=== PATIENT | female | born 1995 | race Caucasian/White ===

== ENCOUNTER 2016-12-25 10:32 | Emergency (ER) | payer OTHER ==
[2016-12-25 11:40] VITALS: BP 121/69
--- NOTE | 2016-12-25 12:06 | UC ---
Throat Pain/Nasal Antonio HPI - HPI Summary HPI Summary: Marked nasal congestion with PND and some cough starting 7-8 days ago. Had R maxillary facial fx years ago, sometimes gets bacterial complications of colds from this. Not having facial pain or focal symptoms. Denies fever or trouble breathing, is having mild R ear pain. - History of Current Complaint Chief Complaint: UC Stated Complaint: HEAD CONGESTION COUGH Time Seen by Provider: 12/25/16 11:39 Hx Obtained From: Patient Hx Last Menstrual Period: December 13; on control ?: No Onset/Duration: Gradual Onset, Lasting Days Severity: Moderate Cough: Productive Associated Signs & Symptoms: Positive: Sinus Discomfort, Nasal Discharge - Allergies/Home Medications Allergies/Adverse Reactions: Allergies Allergy/AdvReac Type Severity Reaction Status Date / Time Amoxicillin Allergy Mild Hives Verified 03/30/16 15:39 PMH/Surg Hx/FS Hx/Imm Hx Endocrine History Of: Denies: Diabetes, Thyroid Disease, Hyperthyroidism, Hypothyroidism Cardiovascular History Of: Denies: Cardiac Disorders, Hypertension, Pacemaker/ICD, Congestive Heart Failure Respiratory History Of: Denies: COPD, Asthma GI/ History Of: Denies: Ulcer, Renal Disease Neurological History Of: Denies: TIA, Seizures Psychological History Of: Denies: Anxiety, Depression - Surgical History Surgical History: Yes Surgery Procedure, Year, and Place: Pylonydal Cyst incision/extraction March 2009 - Family History Known Family History: Positive: Blood Disorder - BLOOD CLOTS - UNCLE - Social History Occupation: Employed Full-time Lives: With Family Alcohol Use: None Substance Use Type: None Smoking Status (MU): Former Smoker Amount Used/How Often: quit 2 years ago (2011) Have You Smoked in the Last Year: No Household Exposure Type: Cigarettes - Immunization History Most Recent Influenza Vaccination: fall 2014 Most Recent Tetanus Shot: 2016 Most Recent Pneumonia Vaccination: unknown Review of Systems Constitutional: Negative Skin: Negative Eyes: Negative ENT: Ear Ache, Nasal Discharge Respiratory: Cough Cardiovascular: Negative Gastrointestinal: Negative Genitourinary: Negative Motor: Negative Neurovascular: Negative Musculoskeletal: Negative Neurological: Negative Psychological: Negative All Other Systems Reviewed And Are Negative: Yes Physical Exam Triage Information Reviewed: Yes Appearance: Well-Appearing, No Pain Distress, Well-Nourished Vital Signs: Initial Vital Signs Temp 97.8 F 12/25/16 11:35 Pulse 98 12/25/16 11:35 Resp 18 12/25/16 11:35 BP 121/69 12/25/16 11:35 Pulse Ox 99 12/25/16 11:35 Vital Signs Reviewed: Yes Eye Exam: Normal Eyes: Positive: Conjunctiva Clear ENT: Positive: Pharynx normal, Nasal congestion, Nasal drainage, TMs normal. Negative: Tonsillar swelling, Tonsillar exudate Dental Exam: Normal Neck exam: Normal Neck: Positive: Supple, Nontender, No Lymphadenopathy Respiratory Exam: Normal Respiratory: Positive: Chest non-tender, Lungs clear, Normal breath sounds, No respiratory distress, No accessory muscle use Cardiovascular Exam: Normal Cardiovascular: Positive: RRR, No Murmur Musculoskeletal Exam: Normal Neurological Exam: Normal Psychological Exam: Normal Skin Exam: Normal Throat Pain/Nasal Course/Dx - Differential Dx/Diagnosis Provider Diagnoses: URI, likely viral Discharge - Discharge Plan Condition: Stable Disposition: HOME Patient Education Materials: Upper Respiratory Infection (ED) Forms: *Work Release Additional Instructions: Call or return if you develop increasing fever, shortness of breath, chest pain , bloody sputum, or otherwise worsen. If you have not improved at all after several days, contact your primary care physician or return here. SINUS RINSES HAVE BEEN SHOWN TO HELP IMPROVE SYMPTOMS AND SHORTEN THE DURATION OF MILD TO MODERATE SINUSITIS. [employer] MAKES A SQUEEZE BOTTLE THAT YOU CAN USE OVER THE SINK OR IN THE SHOWER. USE ONLY SALINE, AND REPEAT UP TO EVERY 2 HOURS DESIRED. ONLY USE DISTILLED WATER TO MIX UP SALINE, DO NOT USE TAP WATER. NASAL SPRAYS AND DROPS: Decongestant nasal sprays and drops often give dramatic relief from congestion. They are often recommended for patients with sinus infection to assist with sinus drainage. Persons with high blood pressure should consult the doctor before using these nasal sprays. Afrin and Ted-Synephrine are common [id number] preparations. They should not be used for more than three days, as "rebound" congestion can occur - - the congestion flares as the drug wears off. A way of dealing with this rebound congestion problem is to medicate only one nostril each time, allowing the other nostril to recover from the medicine' s effects. When you no longer need the drug during the day, spray only one nostril each night. This helps you sleep well without severe rebound congestion. Call your doctor if you develop severe headache, palpitations, or chest pain. IF YOU DO NOT SEE SOME STEADY IMPROVEMENT IN THE NEXT 3-4 DAYS, PLEASE CALL AND GET ME A MESSAGE. I WILL BE WORKING BOTH AT [facility] AND [facility] MOST DAYS FOR THE NEXT WEEK OR SO.
== END 2016-12-25 12:21 | disposition home or self-care (01) ==
LOC: UCEAST 10:32
DX: J06.9 Acute upper respiratory infection, unspecified (principal); Z87.891 Personal history of nicotine dependence; Z88.0 Allergy status to penicillin
CPT/HCPCS: 99211; G0463

== ENCOUNTER 2017-02-05 12:51 | Emergency (ER) | payer OTHER ==
[2017-02-05 15:32] VITALS: BP 135/76
--- NOTE | 2017-02-05 15:55 | UC ---
Throat Pain/Nasal Antonio HPI - HPI Summary HPI Summary: complaint of sore throat that started last night hurts to swallow denies fever denies nasal congestion and cough gargled with listerene without relief took some tylenol without relief - History of Current Complaint Chief Complaint: UCGeneralIllness Stated Complaint: SORE THROAT Time Seen by Provider: 02/05/17 15:36 Hx Obtained From: Patient Hx Last Menstrual Period: 02/05/17 - Allergies/Home Medications Allergies/Adverse Reactions: Allergies Allergy/AdvReac Type Severity Reaction Status Date / Time Amoxicillin Allergy Mild Hives Verified 03/30/16 15:39 PMH/Surg Hx/FS Hx/Imm Hx Previously Healthy: Yes Endocrine History Of: Denies: Diabetes, Thyroid Disease, Hyperthyroidism, Hypothyroidism Cardiovascular History Of: Denies: Cardiac Disorders, Hypertension, Pacemaker/ICD, Congestive Heart Failure Respiratory History Of: Denies: COPD, Asthma GI/ History Of: Denies: Ulcer, Renal Disease Neurological History Of: Denies: TIA, Seizures Psychological History Of: Denies: Anxiety, Depression - Surgical History Surgical History: Yes Surgery Procedure, Year, and Place: Pylonydal Cyst incision/extraction March 2009 - Family History Known Family History: Positive: Blood Disorder - BLOOD CLOTS - UNCLE Negative: Cardiac Disease, Hypertension - Social History Occupation: Employed Full-time Lives: With Family Alcohol Use: None Substance Use Type: None Smoking Status (MU): Former Smoker Amount Used/How Often: quit 2 years ago (2011) Have You Smoked in the Last Year: No Household Exposure Type: Cigarettes - Immunization History Most Recent Influenza Vaccination: fall 2014 Most Recent Tetanus Shot: 2016 Most Recent Pneumonia Vaccination: unknown Review of Systems Constitutional: Negative Skin: Negative Eyes: Negative ENT: Sore Throat Respiratory: Negative Cardiovascular: Negative Gastrointestinal: Negative Genitourinary: Negative Motor: Negative Neurovascular: Negative Musculoskeletal: Negative Neurological: Negative Psychological: Negative All Other Systems Reviewed And Are Negative: Yes Physical Exam Triage Information Reviewed: Yes Appearance: No Pain Distress, Well-Nourished Vital Signs: Initial Vital Signs Temp 97.9 F 02/05/17 13:44 Pulse 89 02/05/17 13:44 Resp 16 02/05/17 13:44 BP 141/66 02/05/17 13:44 Pulse Ox 100 02/05/17 13:44 Vital Signs Reviewed: Yes Eyes: Positive: Conjunctiva Clear ENT: Positive: Pharyngeal erythema, TMs normal, Tonsillar swelling, Tonsillar exudate. Negative: Nasal congestion Neck: Positive: Enlarged Nodes @ - cervical lymph nodes Respiratory: Positive: Lungs clear, Normal breath sounds, No respiratory distress, No accessory muscle use Cardiovascular: Positive: RRR, No Murmur, Pulses Normal Abdomen Description: Positive: Nontender, Soft Bowel Sounds: Positive: Present Musculoskeletal: Positive: No Edema Neurological: Positive: Alert Psychological Exam: Normal Skin Exam: Normal Throat Pain/Nasal Course/Dx - Differential Dx/Diagnosis Differential Diagnosis/HQI/PQRI: Pharyngitis, Tonsillitis Provider Diagnoses: pharyngitis Discharge - Discharge Plan Condition: Stable Disposition: HOME Patient Education Materials: Pharyngitis (ED) Referrals: Gerald Mcclure NP [Primary Care Provider] - Additional Instructions: Your blood pressure is elevated. Please contact your primary care provider within 1 day -4 weeks for further evaluation. PHARYNGITIS (Sore Throat) What is Pharyngitis? The medical name for a sore throat is Pharyngitis. It is caused by an infection or irritation of your throat or tonsils. The infection can be caused by a virus or by bacteria. Not everyone with Pharyngitis needs antibiotics. Antibiotics will not make viral infections better, and they will not help a sore throat caused by irritation. Symptoms May Include: Sore throat Swelling of the glands in the neck Trouble or pain with swallowing Fever Headache Cough Extreme tiredness Ear pain Treatment Recommendations: Gargle every few hours with a solution of 1/4 teaspoon of salt dissolved in 1/ 2 cup of warm water. Drink plenty of warm beverages, like tea with lemon, (with or without honey) and soup. You may eat and drink cold foods and liquids like frozen yogurt, popsicles, and ice water if that makes your throat feel better. The goal is to keep you well hydrated. Use a "cool-mist" vaporizer or humidifier in the room where you spend most of your time. If you get a sore throat often, consider adding an electronic air filter and humidifier to your furnace system. Don't smoke. Do not eat spicy foods. Take medicine exactly as prescribed. If you do not think it is helping, call your healthcare provider. Do not increase how much or how often you take it without getting their OK first. Non-prescription anti-inflammatory medicine like ibuprofen (Motrin, Advil) or naproxen (Aleve) may help lessen the pain. You should not take these medicines if you have had bleeding in your stomach in the past. Acetaminophen ( Tylenol) is another choice of medicine that may help the pain. If pain medicine that makes you tired or sleepy or contains narcotics is prescribed, you should not drink, drive, or participate in any other activities that you need to be clear-headed for. Please keep all medicines out of the reach of children. Do not get in close contact with anyone you know who has a sore throat. Use throat lozenges (Cepostat, [place], etc.) or suck on hard candy for temporary relief of the pain with swallowing. (Do not give to children under age 5.) Call Your Doctor or Return Here IF: Your symptoms do not start to get better within 2 days or you become worse. You have a fever over 101.0 F orally. You cant swallow liquids or saliva. You are drooling. You start to have trouble breathing. You start to have a rash.
== END 2017-02-05 16:01 | disposition home or self-care (01) ==
LOC: UCEAST 12:51
DX: J02.9 Acute pharyngitis, unspecified (principal); Z88.1 Allergy status to other antibiotic agents; Z87.891 Personal history of nicotine dependence
CPT/HCPCS: 87651; 99212; G0463

== ENCOUNTER 2018-05-15 12:00 | Emergency (ER) | payer OTHER ==
[2018-05-15 12:12] VITALS: BP 115/80
--- NOTE | 2018-05-15 12:15 | UC ---
General HPI - HPI Summary HPI Summary: Mirna Reyes, scribed for attending Rosy Villalobos MD. Pt is a 22 y/o F who presents to [facility] accompanied by her aunt c/o N/V/D. Diarrhea began on (1 week ago) which resolved, then she began vomiting on Saturday (5 days ago) with diarrhea starting again today. Reports that her N/ V is slightly improved today. Has been trying to drink watered-down Gatorade which she tolerates for about an hour, then she vomits. Notes subjective fever/ chills on Saturday (6 days ago) which is now resolved. Additionally notes sore throat secondary to vomiting and RUQ pain. Denies rash, GARDUNO, and ear pain. She was seen by [facility] on Saturday (4 days ago) where she was given a Dx of UTI and Rx for Keflex QID. PSHx cholecystectomy (2015) - has been experiencing yellow diarrhea since surgery and also has had difficulty tolerating Abx. Has not traveled outside of the country and nobody at home is sick. No chance of - is on oral contraceptives and has only missed doses while sick during which she has not been sexually active. Has an appointment with Dr. Nayak in a week. Patient medications and allergies reviewed this visit. - History of Current Complaint Chief Complaint: UCGeneralIllness Stated Complaint: VOMITING Hx Obtained From: Patient Hx Last Menstrual Period: 04/30/18 Onset/Duration: Lasting Weeks - 1 week, Still Present Timing: Intermittent Episodes Lasting: Current Severity: Mild Pain Intensity: 3 Pain Location at: RUQ Character: Cramping/aching Aggravating: Nothing Alleviating: Nothing Associated Signs & Symptoms: Positive: Abdominal Pain - RUQ - mild, Diarrhea, Fever - Resolved, Nausea, Vomiting - Allergy/Home Medications Allergies/Adverse Reactions: Allergies Allergy/AdvReac Type Severity Reaction Status Date / Time amoxicillin Allergy Rash Verified 05/15/18 12:12 PMH/Surg Hx/FS Hx/Imm Hx - Additional Past Medical History Additional PMH: NEGATIVE PMHx: COPD, HTN, Asthma, DM Previously Healthy: Yes - Surgical History Surgical History: Yes Surgery Procedure, Year, and Place: Pylonydal Cyst incision/extraction March 2009 nish - Family History Known Family History: Positive: Blood Disorder - BLOOD CLOTS - UNCLE, Other - GI (father) Negative: Cardiac Disease, Hypertension - Social History 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 [employer] Alcohol Use: None Substance Use Type: None Smoking Status (MU): Former Smoker Amount Used/How Often: quit 2 years ago (2011) Have You Smoked in the Last Year: No Household Exposure Type: Cigarettes - Immunization History Most Recent Influenza Vaccination: fall 2014 Most Recent Tetanus Shot: 2016 Most Recent Pneumonia Vaccination: unknown Review of Systems Constitutional: Fever - Resolved, Chills - Resolved Skin: Negative Eyes: Negative ENT: Sore Throat - Secondary to vomiting Respiratory: Negative Cardiovascular: Negative Gastrointestinal: Abdominal Pain - RUQ, Vomiting, Diarrhea, Nausea Genitourinary: Negative Motor: Negative Neurovascular: Negative Musculoskeletal: Negative Neurological: Negative Psychological: Negative All Other Systems Reviewed And Are Negative: Yes - Comments Additional Review of Systems Comments: NEGATIVE: Rash, GARDUNO, and ear pain Physical Exam - Summary Physical Exam Summary: Vital Signs Reviewed: Yes A+Ox3, no distress Eyes: Conjunctiva Clear, NOAH. EOM intact and full ENT: Hearing grossly normal TM x 2 clear, mmoist, uvula midline, no exudate, no erythema Neck: Positive: Supple Respiratory: Positive: No respiratory distress, No accessory muscle use + CTA throughout no w/r Cardiovascular: RRR nl s1, s2 no m/r CBT <2 sec abd soft + BS nt/nd no guarding, no distension no cva Musculoskeletal Exam: RODRÍGUEZ x 4 without difficulty Strength Intact, ROM Intact Neurological: Positive: Alert, + sensation throughout Psychological: Positive: Normal Response To Family Skin: Positive: no rash, no ecchymosis Triage Information Reviewed: Yes Vital Signs: Initial Vital Signs Temp 98 F 05/15/18 12:06 Pulse 112 05/15/18 12:06 Resp 17 05/15/18 12:06 BP 115/80 05/15/18 12:06 Pulse Ox 100 05/15/18 12:06 Re-Evaluation - Re-Evaluation First Eval Re-Evaluation Time: 13:09 Comment: Pt has a half a popsicle and has not vomited. Review with patient and her aunt clears to [place]. Lo every 6. If pain should develops pain, fevers , uncontrolled vomiting recommend emergent department for further evaluation which included fluids and labs. Patient comfortable in agreement with plan. Work note written for yesterday today and tomorrow. Patient has appointment with a new PCP on . Patient also has 2 collection kit for home. Course/Dx - Course Course Of Treatment: Patient medications and allergies reviewed this visit. Patient presents to urgent care reporting that she had nausea vomiting and diarrhea since last week. Patient was seen at [facility] on Saturday. Patient was given fluids and given Keflex for UTI. Patient states her symptoms had improved until yesterday when they return. Patient can with diarrhea today. Patient denies any pain. No fevers or chills. Patient denies current lightheadedness although had that before she got fluids on Saturday. Patient's vitals are stable not concerning exam. Patient appears well-hydrated. We'll give patient one Zofran ODT. Patient able to give a stool collected otherwise was sent home with stool collection. After Zofran we'll try Popsicle trial - Differential Dx - Multi-Symptom Provider Diagnoses: n/v/d Discharge - Sign-Out/Discharge Documenting (check all that apply): Patient Departure - Discharge - Discharge Plan Condition: Stable Disposition: HOME Prescriptions: Ondansetron [Zofran Odt] 4 mg PO Q6HR PRN #10 tab.rapdis PRN Reason: Vomiting Patient Education Materials: Acute Nausea and Vomiting (ED), Acute Diarrhea (ED ) Forms: *Gen. Provider Communication, *Work Release Referrals: Viviana Nayak MD [Primary Care Provider] - Additional Instructions: - Stay well hydrated - frequent sips of fluids are important - water, juice, gatorade, pedialyte, popsicle - Avoid excess caffeine and all alcohol until you are feeling better - okay to take medication as prescribed for nausea. - For the first 6 hours, eat and drink clears (water, hollie vic, soup broth, jello, popsicles, Gatorade). If you tolerate this okay, add bland foods such as dry toast, scrambled eggs, crackers. Wait until you are feeling better for 24 hours before eating spicy food, acidic food, tomato based food, fried food. - You have been given a stool collection kit - if you collect diarrhea, bring a sample to a [facility] lab for testing. - it is recommended you discontinue your antibiotics - Contact your doctor to arrange a follow-up appointment later this week. Contact your doctor or return with questions or concern - Billing Disposition and Condition Condition: STABLE Disposition: Home
[2018-05-15] MEDS ORDERED: Ondansetron ODT TAB* 4 MG PO ONE (12:36)
[2018-05-15] MEDS ORDERED: Ondansetron ODT TAB* 4 MG ONE (12:39)
--- NOTE | 2018-05-16 21:12 | UC ---
- Progress Note Progress Note: Please notify PT of + test for c.diff Needs to see her MD in followup ...first available IF SHE IS WORSE THEN WHEN SEEN HERE I SUGGEST SHE GO TO THE ER will e RX flagyl 500mg 3x day for 10 days may need to be changed to something else if symptoms become severe Re-Evaluation - Re-Evaluation First Eval Re-Evaluation Time: 13:09 Comment: Pt has a half a popsicle and has not vomited. Review with patient and her aunt clears to [place]. Zofran every 6. If pain should develops pain, fevers , uncontrolled vomiting recommend emergent department for further evaluation which included fluids and labs. Patient comfortable in agreement with plan. Work note written for yesterday today and tomorrow. Patient has appointment with a new PCP on . Patient also has 2 collection kit for home. Discharge - Sign-Out/Discharge Documenting (check all that apply): Post-Discharge Follow Up - Discharge Plan Condition: Stable Disposition: HOME Prescriptions: Ondansetron [Zofran Odt] 4 mg PO Q6HR PRN #10 tab.rapdis PRN Reason: Vomiting Patient Education Materials: Acute Nausea and Vomiting (ED), Acute Diarrhea (ED ) Forms: *Gen. Provider Communication, *Work Release Referrals: Viviana Ayon MD [Primary Care Provider] - Additional Instructions: - Stay well hydrated - frequent sips of fluids are important - water, juice, gatorade, pedialyte, popsicle - Avoid excess caffeine and all alcohol until you are feeling better - okay to take medication as prescribed for nausea. - For the first 6 hours, eat and drink clears (water, hollie vic, soup broth, jello, popsicles, Gatorade). If you tolerate this okay, add bland foods such as dry toast, scrambled eggs, crackers. Wait until you are feeling better for 24 hours before eating spicy food, acidic food, tomato based food, fried food. - You have been given a stool collection kit - if you collect diarrhea, bring a sample to a [facility] lab for testing. - it is recommended you discontinue your antibiotics - Contact your doctor to arrange a follow-up appointment later this week. Contact your doctor or return with questions or concern - Billing Disposition and Condition Condition: STABLE Disposition: Home
== END 2018-05-15 13:19 | disposition home or self-care (01) ==
LOC: UCEAST 12:00
DX: R11.2 Nausea with vomiting, unspecified (principal); R19.7 Diarrhea, unspecified; Z88.0 Allergy status to penicillin; Z87.891 Personal history of nicotine dependence
CPT/HCPCS: 81003; 99212; A9270-GY; G0463

== ENCOUNTER 2018-08-01 18:42 | Emergency (ER) | payer OTHER ==
[2018-08-01 19:11] VITALS: BP 129/82
--- NOTE | 2018-08-01 20:00 | UC ---
Skin Complaint HPI - HPI Summary HPI Summary: 23 y/o male presents to the urgent care c/o her pilonidal cyst scar is now draining some serous discharge since yesterday. Pt reports she had surgery for a pilonidal cyst in 2008. It never bother her until now. She has mild irritation around which it feels a burning sensation when she sits. She thinks her scar opened a little bit. Pain w/ sitting is 5/10. Pt has not taken anything to alleviate symptoms. LMP:07/23/2018 w/ regular menstrual cycles, on OCP. Pt denies Hx of MRSA, fever, SOB, chest pain, abdominal pain, N/V/D. - History of Current Complaint Chief Complaint: UCSkin Time Seen by Provider: 08/01/18 19:53 Stated Complaint: WOUND RECHECK Hx Obtained From: Patient Hx Last Menstrual Period: [id number] Onset/Duration: Gradual Onset, Lasting Days - 1 day, Still Present, Worse Since - today Skin Exposure Onset/Duration: Days Ago - 1 day Timing: Constant Onset Severity: Mild Current Severity: Moderate Pain Intensity: 5 Pain Scale Used: 0-10 Numeric Location: Discrete - mid line of her buttocks in the scar Character: Redness, Painful Aggravating Factor(s): Touch Alleviating Factor(s): Nothing Associated Signs & Symptoms: Positive: Rash, Drainage - serous drainage, Tenderness. Negative: Fever, Chills Related History: Other: - Hx of Pilonidal cyst in 2008 - Allergy/Home Medications Allergies/Adverse Reactions: Allergies Allergy/AdvReac Type Severity Reaction Status Date / Time amoxicillin Allergy Rash Verified 08/01/18 19:11 anesthesia Allergy Vomiting Uncoded 08/01/18 19:11 Home Medications: Home Medications Norgestimate-Ethinyl Estradiol [Garden-Linyah 28 Tablet] 1 tab PO DAILY 08/01/18 [ History Confirmed 08/01/18] Review of Systems Constitutional: Negative Skin: Rash - serous drainage from old pilonidal cyst scar w/ sorrounding redness and pain Eyes: Negative ENT: Negative Respiratory: Negative Cardiovascular: Negative Gastrointestinal: Negative Genitourinary: Negative Motor: Negative Neurovascular: Negative Musculoskeletal: Negative Neurological: Negative Psychological: Negative Is Patient Immunocompromised?: No All Other Systems Reviewed And Are Negative: Yes PMH/Surg Hx/FS Hx/Imm Hx Previously Healthy: Yes - Pt denies PMHX - Surgical History Surgical History: Yes Surgery Procedure, Year, and Place: Pylonydal Cyst incision/extraction March 2009 , nish - Family History Known Family History: Positive: Blood Disorder - BLOOD CLOTS - UNCLE, Other - GI (father) Negative: Cardiac Disease, Hypertension - Social History Occupation: Employed Full-time Lives: With Family Alcohol Use: Rare Substance Use Type: None Smoking Status (MU): Light Every Day Tobacco Smoker Amount Used/How Often: quit 2 years ago (2011) Have You Smoked in the Last Year: No Household Exposure Type: Cigarettes - Immunization History Most Recent Influenza Vaccination: fall 2014 Most Recent Tetanus Shot: 2015 Most Recent Pneumonia Vaccination: unknown Physical Exam - Summary Physical Exam Summary: Vital Signs Reviewed: Yes General: well developed, well nourished female sitting in the examining table w/ o any apparent distress Eye Exam: Normal Eyes: Positive: Conjunctiva Clear - PERRLA, EOMI, fundi grossly normal ENT: Positive: Normal ENT inspection, Hearing grossly normal, Pharynx normal, TMs normal Neck: Positive: Supple, Nontender, No Lymphadenopathy Respiratory: Positive: Chest non-tender, Lungs clear, Normal breath sounds, No respiratory distress Cardiovascular: Positive: RRR, No Murmur, Pulses Normal, Brisk Capillary Refill Abdomen Description: Positive: Nontender, No Organomegaly, Soft. Negative: CVA Tenderness (R), CVA Tenderness (L) Bowel Sounds: Positive: Present Musculoskeletal: Positive: Strength Intact, ROM Intact, No Edema Neurological: Positive: Alert, Muscle Tone Normal Psychological Exam: Normal Skin: Positive: Positive scar at the midline over the coccyx s/p pilonidal surgery w/ a discrete opening about 0.5cm in size w/ mild serous discharge, also mild erythematous maculopapular eruption sorrounding the area and between both gluteus. no fluctuant induration palpated , mild tenderness to palpation, Triage Information Reviewed: Yes Vital Signs: Initial Vital Signs Temp 98.4 F 08/01/18 19:05 Pulse 99 08/01/18 19:05 Resp 16 08/01/18 19:05 BP 129/82 08/01/18 19:05 Pulse Ox 100 08/01/18 19:05 Course/Dx - Course Course Of Treatment: 23 y/o male presents to the urgent care c/o her pilonidal cyst scar is now draining some serous discharge since yesterday. Pt reports she had surgery for a pilonidal cyst in 2008. It never bother her until now. She has mild irritation around which it feels a burning sensation when she sits. She thinks her scar opened a little bit. Pain w/ sitting is 5/10. Pt has not taken anything to alleviate symptoms. LMP:07/23/2018 w/ regular menstrual cycles, on OCP. Pt denies Hx of MRSA, fever, SOB, chest pain, abdominal pain, N/ V/D. Hx obtained. Pt w/ Positive scar at the midline over the coccyx s/p pilonidal surgery w/ a discrete opening about 0.5cm in size w/ mild serous discharge, also mild erythematous maculopapular eruption sorrounding the area and between both gluteus. no fluctuant induration palpated , mild tenderness to palpation on examination. Pt's symptoms disccused w/ Dr Villalobos and she recommeded Po antibiotics since Pilonidal cyst is already draining and f/u w/ Surgeon for further management. Wound cleaned w/ 3X iodine swabs and flushed w/ sterile water, Bacitracin oint applied and wound covered w/ sterile dressing. Pt Rx Bactrim PO and Bacitracin oint, Ibuprofen PO as directed below. First dose given at the clinic tonight. Pt tolerated well medications. Pt given referral w/ surgeon Dr Barakat for further management. D/C instructions explained. Pt undertstood and agreed w/ plan of care and left clinic ambulating , A&OX3. - Differential Diagnoses - Skin Complaint Differential Diagnoses: Abscess, Cellulitis, MRSA, Urticaria, Other - pilonidal cyst - Diagnoses Provider Diagnoses: 1- Pilonidal cyst - Physician Notification/Consults Discussed Patient Care With: Rosy Villalobos - Dr villalobos agreed w/ Pt's plan of care. Discharge - Sign-Out/Discharge Documenting (check all that apply): Patient Departure All imaging exams completed and their final reports reviewed: No Studies - Discharge Plan Condition: Stable Disposition: HOME Prescriptions: Bacitracin OINTMENT* 1 applic TOPICAL BID #1 tube Ibuprofen TAB* [Motrin TAB* 600 MG] 600 mg PO Q6H PRN #30 tab PRN Reason: Pain Sulfamethox/Trimethoprim DS* [Bactrim DS 800/160 TAB*] 1 tab PO BID #20 tab Patient Education Materials: Pilonidal Cyst (ED) Referrals: Ryne Barakat MD [Medical Doctor] - 3 Days Justin Hinojosa MD [Primary Care Provider] - 2 Days Additional Instructions: 1-Please take full course of antibiotic to avoid resistance. Keep wound clean and dry with a sterile dressing. Apply bacitracin topical as directed 2-. Take Ibuprofen PO q6-8hrs prn for pain or swelling. Apply warm compresses prn 4-If you develop fever or redness or pain increases despite taking antibiotic please go to the ER immediately for further management 5- Please f/u w/ Surgeon Dr Barakat for further evaluation and treatment on your Pilonidal scar - Billing Disposition and Condition Condition: STABLE Disposition: Home - Attestation Statements Provider Attestation: I was available for consult. This patient was seen by the OZZY. The patient was not presented to, seen by, or examined by me. -Praveena
== END 2018-08-01 20:40 | disposition home or self-care (01) ==
LOC: UCEAST 18:42
DX: L05.91 Pilonidal cyst without abscess (principal); Z88.0 Allergy status to penicillin; Z88.4 Allergy status to anesthetic agent; Z87.891 Personal history of nicotine dependence
CPT/HCPCS: 99212; G0463

== ENCOUNTER 2019-05-12 10:19 | Emergency (ER) | payer OTHER ==
--- OUTSIDE RECORDS SUMMARY | 2019-05-12 10:39 | XMS REPORT | Continuity of Care Document ---
:1995 External Reference #:[id number] Author Name KimberlyaMría bhardwaj Care Team Providers Name Role Phone Justin Hinojosa MD Primary Care Physician Unavailable Payers Date Identification Numbers Payment Provider Subscriber Policy Number: [id number] [facility] stas gomez PayID: [id number] [address] [address] [place] [address] Expires: 2019 Policy Number: [id number] [facility] Stas Gomez Group Number: [id number] Group Name: [place] [address] PayID: [id number] Onset: 2012 Policy Number: [id number] [employer] Tiera Gomez PayID: [id number] [address] [place] [address] Expires: 2016 PayID: [id number] [employer] Employee [address] [place] [address] Effective: 2016 Policy Number: Cont: [employer] Din[employer] Employee [id number] Employees PayID: [id number] [address] [place] [address] Expires: 2017 Policy Number: [id number] Angelito Gomez Group Name: [id number] [address] PayID: [id number] [place] [address] Problems Active Problems Provider Date Pharyngitis Gerald Mcclure NP Onset: 02/14/2017 Family History Date Family Member(s) Observation Comments Father Alcoholism Father Tobacco use disorder Father Cirrhosis Father Hypertension Mother Cervical Cancer First Son Only child Onset: (2016) First Brother 20 healthy Onset: (2016) Second Brother 19 ADHD Paternal Grandfather [place] : (age 50 Years) Paternal Grandfather due to [place] Paternal Grandfather CAD Paternal Grandmother due to CAD () Paternal Grandmother due to Diabetes () : (age 79 Years) Paternal Grandmother due to Stroke Maternal Grandfather Lung Cancer and bone Maternal Grandmother Healthy? 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 ETOH Use Negative For Denies alcohol use Tobacco Use Start: Unknown End: Patient is a former Unknown smoker Recreational Drug Use Denies Drug Use Smoking Status Reviewed: 04/23/19 Patient is a former smoker Exercise Type/Frequency Exercises regularly 3 days a week goes for long walks Currently Active Patient is currently sexually active Contraceptive Methods alma-linyah Age 1st [place] 14 Years Old # Partners in a Lifetime 3 STD's HPV, [facility] 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 M.D. Kerr-Linyah 1 by mouth Unknown 0.25-35mg-mcg Tablets every day Ibuprofen 1 tab by mouth Unknown 600mg Tablets three times a day as needed History Medications Lidocaine Viscous swish and gargle 100ml J03.90 Tamica Tobar, 02/06/2017 - 2% every 3- 4 hours N.P. 02/16/2017 Solution as needed Azithromycin two tabs day 6tabs J03.90 Tamica Tobar, 02/06/2017 - 250mg one, one daily N.P. 02/14/2017 Tablets till gone Reglan Other Ordering 11/27/2013 - 10mg Tablets Provider 06/19/2016 Prilosec 1 po bid Other Ordering 11/27/2013 - 40mg Capsules Provider 06/19/2016 DR Porras 1-2 by mouth Unknown - 5-325mg every 4 to 6 02/06/2017 Tablets hours as needed pain Bactrim DS 1 by mouth twice Unknown - 800-160mg a day 04/22/2019 Tablets Bacitracin (External) topical to Unknown - wounds twice a 04/22/2019 500Unit/GM Ointment day Medications Administered in Office Medication SIG Qnty Indications Ordering Provider Date BREE Hua, 11/10/2012 Injection N.P. Vital Signs Date Vital Result Comment 04/23/2019 1:27pm Height 62 inches 5'2" Weight 212.00 lb BP Systolic 134 mmHg BP Diastolic 90 mmHg Respiratory Rate 16 /min Body Temperature 98.7 F Pain Level 7 BMI (Body Mass Index) 38.8 kg/m2 08/05/2018 10:37am Height 64 inches 5'4" Weight 180.00 lb Heart Rate 80 /min BP Systolic 124 mmHg BP Diastolic 80 mmHg Respiratory Rate 16 /min Body Temperature 98.3 F BMI (Body Mass Index) 30.9 kg/m2 02/14/2017 1:06pm Weight 203.25 lb Heart Rate 82 /min BP Systolic Sitting 120 mmHg BP Diastolic Sitting 80 mmHg Body Temperature 98.9 F O2 % BldC Oximetry 98 % 02/06/2017 8:33am Weight 206.00 lb Heart Rate 85 /min BP Systolic Sitting 122 mmHg BP Diastolic Sitting 70 mmHg Body Temperature 98.0 F O2 % BldC Oximetry 98 % 2016 8:19am Height 64 inches 5'4" Weight 194.38 lb Heart Rate 80 /min BP Systolic 110 mmHg BP Diastolic 70 mmHg Body Temperature 98.0 F O2 % BldC Oximetry 99 % BMI (Body Mass Index) 33.4 kg/m2 11/27/2013 1:02pm Height 64 inches 5'4" Weight 176.00 lb Heart Rate 100 /min BP Systolic 114 mmHg BP Diastolic 76 mmHg Respiratory Rate 16 /min Body Temperature 98.9 F BMI (Body Mass Index) 30.2 kg/m2 Results Test Date Facility Test Result H/L Range Note Laboratory test 02/14/2017 [facility] Culture Throat SEE RESULT [address] [place] [address] [phone] Laboratory test 02/05/2017 [facility] Rapid Strep Negative N Negative [address] [place] [address] [phone] 1 SEE RESULT BELOW Name: TIERA GOMEZ : [address]: Gerald Mcclure CAUL PULLER Acct: [id number] Unit: [id number] AGE: 21 Location: [facility] Re02/14/17 SEX: F Status: REG REF SPEC: [id number] ILENE: 02/14/17-[address]: Gerald Mcclure NP REQ: [id number] RECD: 02/14/17 STATUS: COMP _ SOURCE: THROAT SPDESC: ORDERED: Throat Culture COMMENTS: [id number] Procedure Result Reported Site Throat Culture Final 02/16/17- 1350 ML Organism 1 NORMAL DIAMOND Quantity 2+ Throat cultures are clinically indicated to detect the presence of group A strep, arcanobacterium and yeast. In certain cases, predominating organisms will be reported. * ML - MAIN LAB ([facility]) . END OF REPORT * ML=Testing performed at Main Lab DEPARTMENT OF PATHOLOGY, [address] [place] [address] Riley Gordon M.D. Director [facility] # [id number] 2 Pharmaceutical Sales Representative: [id number] Procedures Date Code Description Status 09/07/2013 43280 EKG, Interpretation Only Completed 09/07/2013 08729 EKG, Interpretation Only Completed Encounters Type Date Location Provider Dx Diagnosis Office Visit 08/05/2018 Surgical Laith SCasey L05.91 Pilonidal cyst 11:00a [facility] MD Ben without abscess Office Visit 02/14/2017 [facility] Internal Gerald Mcclure NP J02.9 Acute pharyngitis, 1:00p Medicine - [address] unspecified Office Visit 02/06/2017 [facility] Internal Tamica Tobar J03.90 Acute tonsillitis, 8:40a Medicine - Ccmob N.P. unspecified Office Visit 11/28/2016 [facility] Beti Moss Z11.1 Encounter for 11:30a Home N.P. 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 screening for respiratory tuberculosis Z02.1 Encounter for pre-employment examination Office Visit 12/01/2014 11:00a [facility] Gem Moss, V70.3 Examination Other Home N.P. Medical For Administrative Purpose V74.1 Screening Examination Pulmonary Tuberculosis Office Visit 11/27/2013 Kimberley Alla V70.3 Examination Other 1:00p Retirement Javid N.P. Medical For Administrative Purpose V74.1 Screening Examination Pulmonary Tuberculosis Office Visit 04/02/2013 [facility] 840.9 Sprains & Strains 2:15p [facility] Unspec Office Visit 02/26/2013 [facility] 840.9 Sprains & Strains 1:45p [facility] Unspec Office Visit 01/20/2013 [facility] 718.21 Dislocation 4:15p [facility] 840.9 Sprains & Strains Shoulder & Upper Arm Unspec Office Visit 01/06/2013 [facility] 718.21 Dislocation 4:00p [facility] Office Visit 11/10/2012 [facility] Alla V70.3 Examination Other 9:00a Home Javid Medical For N.P. Administrative Purpose Plan of Treatment Future Appointment(s):05/27/2019 8:30 am - [facility]ue Mercedes M.D. at [facility]04/23/2019 - Melissa Carter, [facility]-CM25.531 Pain in right wristNew Therapy:Physical TherapyFollow up:Follow up: 4 -5 weeks
[2019-05-12 12:37] LABS: ABS Lymphocytes 1.4 10^3/ul (1.0-4.8); ABS Monocytes 0.6 10^3/ul (0-0.8); ABS Neutrophils 4.1 10^3/ul (1.5-7.7); Eosinophil % 0.1 %; Hematocrit 46 % (35-47); Hemoglobin 16.2 g/dL (12.0-16.0); Lymphocyte % 22.8 %; Mean Corpuscular HGB Conc 35 g/dL (31-36); Mean Corpuscular Hemoglobin 30 pg (27-31); Mean Corpuscular Volume 86 fL (80-97); Mean Platelet Volume 7.5 fL (7.4-10.4); Nucleated Red Blood Cells % 0.2; Platelet Count 310 10^3/uL (150-450); Red Blood Count 5.36 10^6 /uL (3.70-4.87); Red Cell Distribution Width 13 % (10-15); White Blood Count 6.1 10^3/uL (3.5-10.8)
[2019-05-12 13:15] LABS: HCG Pregnancy < 0.60 mIU/mL
[2019-05-12 13:18] LABS: ALT 50 U/L (7-52); AST 38 U/L (13-39); Albumin 4.6 g/dL (3.2-5.2); Albumin/Globulin Ratio 1.3 (1-3); Alkaline Phosphatase 80 U/L (34-104); Anion Gap 13 mmol/L (2-11); Blood Urea Nitrogen 15 mg/dL (6-24); C Reactive Protein 15.09 mg/L (<8.01); CO2 Carbon Dioxide 23 mmol/L (22-32); Calcium 9.9 mg/dL (8.6-10.3); Chloride 101 mmol/L (101-111); EGFR African American 94.7 (>60); EGFR Non-African American 78.3 (>60); Globulin 3.5 g/dL (2-4); Glucose 110 mg/dL (70-100); Magnesium 1.9 mg/dL (1.9-2.7); Potassium 3.7 mmol/L (3.5-5.0); Sodium 137 mmol/L (135-145); Total Protein 8.1 g/dL (6.4-8.9)
[2019-05-12] MEDS ORDERED: NS 0.9% 1000 ML** 1,000 ML IV ONE ×2 (14:09→14:22)
[2019-05-12] MEDS ORDERED: Metoclopramide IV* 5 MG/ML 2 ML VIAL IV SLOW PU ONE (14:22)
[2019-05-12] MEDS ORDERED: Ketorolac INJ* 30 MG/ML 1 ML VIAL IV PUSH ONE (15:26)
--- NOTE | 2019-05-12 15:26 | ED ---
GI/ HPI - HPI Summary HPI Summary: 23-year-old female presents with abdominal pain nausea vomiting diarrhea for the past 2 days. She states that she's been having watery diarrhea. No blood in stool. has not been on antibiotic recently. States she cannot keep anything down. She states she has been vomiting all day. Has no appetite. Also admits to right lower quadrant pain. Pain does not move anywhere. Denies any urinary symptoms. No chest pain shortness breath or cough. Has no medical conditions. - History of Current Complaint Chief Complaint: EDNauseaVomitDiarrh Time Seen by Provider: 05/12/19 14:08 Stated Complaint: VOMITING PER PATIENT Hx Last Menstrual Period: [id number] Pain Intensity: 5 - Allergy/Home Medications Allergies/Adverse Reactions: Allergies Allergy/AdvReac Type Severity Reaction Status Date / Time amoxicillin AdvReac Rash Verified 05/12/19 10:24 anesthesia AdvReac Vomiting Uncoded 05/12/19 10:24 PMH/Surg Hx/FS Hx/Imm Hx Endocrine/Hematology History: Denies: Hx Diabetes, Hx Thyroid Disease Cardiovascular History: Denies: Hx Congestive Heart Failure, Hx Hypercholesterolemia, Hx Hypertension , Hx Pacemaker/ICD, Hx Peripheral Vascular Disease Respiratory History: Denies: Hx Asthma, Hx Chronic Obstructive Pulmonary Disease (COPD) GI History: Reports: Other GI Disorders - pt reports esophageal sphinctor doesn' t work per testing Denies: Hx Ulcer History: Denies: Hx Dialysis, Hx Renal Disease Musculoskeletal History: Denies: Hx Arthritis, Hx Rheumatoid Arthritis, Hx Osteoporosis Sensory History: Denies: Hx Cataracts, Hx Contacts or Glasses, Hx Glaucoma, Hx Hearing Aid Opthamlomology History: Denies: Hx Cataracts, Hx Contacts or Glasses, Hx Glaucoma Neurological History: Reports: Hx Headaches - after concussion, Other Neuro Impairments/Disorders - HX OF CONCUSSIONS Denies: Hx Seizures, Hx Transient Ischemic Attacks (TIA) Psychiatric History: Denies: Hx Anxiety, Hx Depression, Hx Panic Disorder - Cancer History Cancer Type, Location and Year: none Hx Chemotherapy: No Hx Radiation Therapy: No Hx Palliative Cancer Treatment: No - Surgical History Surgery Procedure, Year, and Place: Pylonydal Cyst incision/extraction March 2009 , nish Hx Anesthesia Reactions: No Infectious Disease History: No Infectious Disease History: Denies: Hx Clostridium Difficile, Hx Hepatitis, Hx Human Immunodeficiency Virus (HIV), Hx of Known/Suspected MRSA, Hx Shingles, Hx Tuberculosis, History Other Infectious Disease, Traveled Outside the [place] in Last 30 Days - Family History Known Family History: Positive: Blood Disorder - BLOOD CLOTS - UNCLE, Other - GI (father) Negative: Cardiac Disease, Hypertension - Social History Alcohol Use: Rare Hx Substance Use: No Substance Use Type: Reports: None Hx Tobacco Use: Yes Smoking Status (MU): Former Smoker Amount Used/How Often: quit 2 years ago (2011) Have You Smoked in the Last Year: No Review of Systems Negative: Fever Negative: Chest Pain Negative: Shortness Of Breath Positive: Abdominal Pain, Vomiting, Diarrhea, Nausea All Other Systems Reviewed And Are Negative: Yes Physical Exam Triage Information Reviewed: Yes Vital Signs On Initial Exam: Initial Vitals Temp Pulse Resp BP Pulse Ox 97.3 F 89 20 145/109 100 05/12/19 10:22 05/12/19 10:22 05/12/19 10:22 05/12/19 10:22 05/12/19 10:22 Vital Signs Reviewed: Yes Appearance: Positive: Well-Appearing Skin: Positive: Warm, Dry Head/Face: Positive: Normal Head/Face Inspection Eyes: Positive: Normal, Conjunctiva Clear ENT: Positive: Pharynx normal Respiratory/Lung Sounds: Positive: Clear to Auscultation, Breath Sounds Present Cardiovascular: Positive: Normal, RRR Abdomen Description: Positive: Soft, Other: - tenderness RLQ, Bowel Sounds: Positive: Present Musculoskeletal: Positive: Normal Neurological: Positive: Normal Psychiatric: Positive: Normal Diagnostics - Vital Signs Vital Signs Temp Pulse Resp BP Pulse Ox 05/12/19 15:00 90 99 05/12/19 14:48 93 125/71 100 05/12/19 14:19 80 128/92 99 05/12/19 14:18 92 99 05/12/19 13:47 98.2 F 96 20 135/77 100 05/12/19 11:31 98.2 F 81 20 151/106 100 05/12/19 10:22 97.3 F 89 20 145/109 100 - Laboratory Lab Results: Lab Results 05/12/19 05/12/19 05/12/19 Range/Units 12:28 12:28 12:28 WBC 6.1 (3.5-10.8) 10^3/uL RBC 5.36 H (3.70-4.87) 10^6 /uL Hgb 16.2 H (12.0-16.0) g/dL Hct 46 (35-47) % MCV 86 (80-97) fL MCH 30 (27-31) pg MCHC 35 (31-36) g/dL RDW 13 (10-15) % Plt Count 310 (150-450) 10^3/uL MPV 7.5 (7.4-10.4) fL Neut % (Auto) 66.3 % Lymph % (Auto) 22.8 % [place] % (Auto) 10.4 % Eos % (Auto) 0.1 % Baso % (Auto) 0.4 % Absolute Neuts (auto) 4.1 (1.5-7.7) 10^3/ul Absolute Lymphs (auto) 1.4 (1.0-4.8) 10^3/ul Absolute Monos (auto) 0.6 (0-0.8) 10^3/ul Absolute Eos (auto) 0.0 (0-0.6) 10^3/ul Absolute Basos (auto) 0.0 (0-0.2) 10^3/ul Absolute Nucleated RBC 0.0 10^3/ul Nucleated RBC % 0.2 Sodium 137 (135-145) mmol/L Potassium 3.7 (3.5-5.0) mmol/L Chloride 101 (101-111) mmol/L Carbon Dioxide 23 (22-32) mmol/L Anion Gap 13 H (2-11) mmol/L BUN 15 (6-24) mg/dL Creatinine 0.88 (0.51-0.95) mg/dL Est GFR ( Amer) 94.7 (>60) Est GFR (Non-Af Amer) 78.3 (>60) BUN/Creatinine Ratio 17.0 (8-20) Glucose 110 H (70-100) mg/dL Lactic Acid 1.6 (0.5-2.0) mmol/L Calcium 9.9 (8.6-10.3) mg/dL Magnesium 1.9 (1.9-2.7) mg/dL Total Bilirubin 0.40 (0.2-1.0) mg/dL AST 38 (13-39) U/L ALT 50 (7-52) U/L Alkaline Phosphatase 80 (34-104) U/L C-Reactive Protein 15.09 H (<8.01) mg/L Total Protein 8.1 (6.4-8.9) g/dL Albumin 4.6 (3.2-5.2) g/dL Globulin 3.5 (2-4) g/dL Albumin/Globulin Ratio 1.3 (1-3) Lipase < 10 L (11.0-82.0) U/L Beta HCG, Quant < 0.60 mIU/mL Result Diagrams: 05/12/19 12:28 05/12/19 12:28 Lab Statement: Any lab studies that have been ordered have been reviewed, and results considered in the medical decision making process. - CT brain CT Interpretation Completed By: Radiologist Summary of CT Findings: IMPRESSION: 1. NO EVIDENCE FOR ACUTE FINDING. IF THE PATIENT'S SYMPTOMS PERSIST CONSIDER FOLLOW-UP. IMAGING. 2. STATUS POST CHOLECYSTECTOMY. 3. HEPATIC STEATOSIS. 4. 2 CM LEFT OVARIAN CYST. GIGU Course/Dx - Course Course Of Treatment: 23-year-old female presents with abdominal pain nausea vomiting diarrhea for the past 2 days. She states that she's been having watery diarrhea. No blood in stool. has not been on antibiotic recently. States she cannot keep anything down. She states she has been vomiting all day. Has no appetite. Also admits to right lower quadrant pain. Pain does not move anywhere. Denies any urinary symptoms. No chest pain shortness breath or cough. Has no medical conditions. On exam tenderness right lower quadrant. wbc normal. CRP elevated. CT shows acute findings. C. difficile is positive. Patient states she does have a history of c diff. We'll place on vancomycin. With history we'll give referral to infectious disease. Told to bleach everything and wash hands. Patient understands agrees with plan. - Diagnoses Differential Diagnoses - Female: Appendicitis, Gastroenteritis (Viral), Urinary Tract Infection Provider Diagnoses: C. difficile colitis, Abdominal pain, Vomiting Discharge - Sign-Out/Discharge Documenting (check all that apply): Patient Departure Patient Received Moderate/Deep Sedation with Procedure: No - Discharge Plan Condition: Good Disposition: HOME Prescriptions: Ondansetron ODT TAB* [Zofran 4 MG Odt TAB*] 4 mg PO Q6H PRN #20 tab.odt PRN Reason: Nausea Vancomycin CAP* 125 mg PO QID #39 cap Patient Education Materials: C Diff (Clostridium Difficile) Infection (ED) Forms: *Work Release Referrals: Cindy RAWLS,Reggie Garsia [Medical Doctor] - Justin Hinojosa MD [Primary Care Provider] - Additional Instructions: Take vancomycin four times a day for 10 days Take Zofran every 6 hours for nausea Wash hands follow up with infectious disease Return to ED if develop any new or worsening symptoms - Billing Disposition and Condition Condition: GOOD Disposition: Home
[2019-05-12] MEDS ORDERED: Iohexol 300* (CONTRAST) 10 ML SDV IV ONE (17:01)
[2019-05-12] MEDS ORDERED: Vancomycin CAP* 125 MG CAP PO ONE (17:03)
[2019-05-12 17:24] LABS: Urine Appearance Clear; Urine Bilirubin Negative (Negative); Urine Blood Negative (Negative); Urine Color Yellow; Urine Glucose Negative (Negative); Urine Ketones Trace (Negative); Urine Nitrite Negative (Negative); Urine Protein Negative (Negative); Urine Specific Gravity 1.017 (1.010-1.030); Urine Urobilinogen Negative (Negative)
[2019-05-12 17:51] VITALS: BP 119/88
--- NOTE | 2019-05-15 05:58 | PN ---
Progress Note - Progress Note Date of Service: 05/15/19 Note: Patient's stool culture did not grow anything. Patient was positive for C. difficile and was placed on vancomycin. No further action required
== END 2019-05-12 17:48 | disposition home or self-care (01) ==
LOC: ED 10:19
DX: A04.72 Enterocolitis due to Clostridium difficile, not specified as recurrent (principal); R11.10 Vomiting, unspecified; Z88.4 Allergy status to anesthetic agent; Z88.1 Allergy status to other antibiotic agents; Z87.891 Personal history of nicotine dependence; Z90.49 Acquired absence of other specified parts of digestive tract; K76.0 Fatty (change of) liver, not elsewhere classified; N83.202 Unspecified ovarian cyst, left side
CPT/HCPCS: 36415; 74177; 80053; 81003; 83605; 83690; 83735; 84702; 85025; 86140; 87045; 87046; 87493; 87899; 96361; 96374; 96375; 99283; A9270-GY; J1885; J2765; Q9967

== ENCOUNTER 2020-06-10 11:30 | Inpatient (IN) ==
[2020-06-10] MEDS ORDERED: Lactated Ringers 1000 ml BAG 1,000 ML IV ONE (12:34)
[2020-06-10] MEDS ORDERED: Oxytocin in LR 20 UNITS/1,000 ML BAG IVPB SCH (13:00)
[2020-06-10 13:32] LABS: Urine Appearance Cloudy; Urine Bilirubin Negative (Negative); Urine Blood Negative (Negative); Urine Color Yellow; Urine Glucose Negative (Negative); Urine Ketones Negative (Negative); Urine Nitrite Negative (Negative); Urine Protein 1+(30 mg/dL) (Negative); Urine Specific Gravity 1.016 (1.010-1.030); Urine Urobilinogen Negative (Negative)
[2020-06-10 13:39] LABS: Urine Benzodiazepine Screen None Detected (None Detect); Urine Cannabinoids Screen None Detected (None Detect); Urine Opiates Screen None Detected (None Detect)
[2020-06-10 13:40] LABS: Urine Bacteria Absent (Absent); Urine Red Blood Cell Trace(0-2/hpf) (Absent); Urine Squamous Epithelial Cell Present (Absent); Urine White Blood Cell 1+(6-10/hpf) (Absent)
[2020-06-10] MEDS: Lactated Ringers 1000 ml BAG 1,000 ML IV SCH ×2 (14:18→16:18)
[2020-06-10 14:45] LABS: ABS Eosinophils 0.1 10^3/ul (0-0.6); ABS Lymphocytes 1.9 10^3/ul (1.0-4.8); ABS Monocytes 0.4 10^3/ul (0-0.8); ABS Neutrophils 5.5 10^3/ul (1.5-7.7); Eosinophil % 1.6 %; Hematocrit 34 % (35-47); Hemoglobin 11.8 g/dL (12.0-16.0); Lymphocyte % 23.7 %; Mean Corpuscular HGB Conc 35 g/dL (31-36); Mean Corpuscular Hemoglobin 30 pg (27-31); Mean Corpuscular Volume 85 fL (80-97); Mean Platelet Volume 8.9 fL (7.4-10.4); Platelet Count 229 10^3/uL (150-450); Red Blood Count 3.97 10^6 /uL (3.70-4.87); Red Cell Distribution Width 13 % (10-15); White Blood Count 7.9 10^3/uL (3.5-10.8)
[2020-06-11] MEDS ORDERED: OBEPIDURAL 250 ML EPIDURAL ONE (00:11)
[2020-06-11] MEDS: Lactated Ringers 1000 ml BAG 1,000 ML IV SCH ×3 (00:26→10:53)
[2020-06-11] MEDS ORDERED: Sodium Citrate/Citric Acid LIQ 15 ML UDC PO PRN (01:34)
[2020-06-11] MEDS ORDERED: Phenylephrine 40 mcg/mL 10mL (400mcg) SYRINGE IV PUSH PRN (01:34)
[2020-06-11] MEDS ORDERED: Lactated Ringers 1000 ml BAG 500 ML IV PRN (01:34)
[2020-06-11] MEDS ORDERED: Lactated Ringers 1000 ml BAG 1,000 ML IV ONE (01:34)
[2020-06-11] MEDS ORDERED: EPHEDrine (Pressors) 50 MG/ML VIAL IV PUSH PRN (01:34)
[2020-06-11] MEDS ORDERED: Lactated Ringers 1000 ml BAG 1,000 ML IV SCH (02:00)
[2020-06-11] MEDS ORDERED: ceFOXitin 2 GM IVPREMIX 2 GM/50 ML BAG ONE (18:32)
[2020-06-11] MEDS ORDERED: Lidocaine 2% w/ EPI 1:200,000 MPF 20 ML SDV VIAL ONE (18:37)
[2020-06-11] MEDS ORDERED: Phenylephrine 40 mcg/mL 10mL (400mcg) SYRINGE ONE (19:29)
[2020-06-11] MEDS ORDERED: Bupivacaine 0.25% SDV PF 10 ML VIAL INJ ONE (19:30)
[2020-06-11] MEDS ORDERED: Morphine PF AMP (0.5MG/ML) 5 MG/10 ML AMP ONE (19:30)
[2020-06-11] MEDS ORDERED: fentaNYL 100 mcg/2 ml 50 MCG/ML VIAL IV PRN (20:28)
[2020-06-11] MEDS ORDERED: Sodium Citrate/Citric Acid LIQ 15 ML UDC PO ONE (20:28)
[2020-06-11] MEDS ORDERED: Naloxone 0.4 mg VIAL 0.4 mg/ml 1 ml VIAL IV PRN ×2 (20:28→20:29)
[2020-06-11] MEDS ORDERED: diPHENhydraMINE IV 50 MG/ML 1 ml VIAL (BENADRYL) IV PRN (20:29)
[2020-06-11] MEDS ORDERED: HYDROcodone/ACETAMIN 5/325 mg TAB PO PRN (20:29)
[2020-06-11] MEDS ORDERED: DiMENhydriNATE IV 50 mg/ml 1 ml VIAL IV PUSH PRN (20:29)
[2020-06-11] MEDS ORDERED: Ondansetron 4 mg VIAL 2 MG/ML 2 ml VIAL IV PRN (20:29)
[2020-06-11] MEDS ORDERED: Lidocaine 1% MPF 5 ML VIAL ONE (22:23)
[2020-06-12] MEDS ORDERED: Dibucaine 1% OINT 28.35 GM TUBE PR PRN (08:08)
[2020-06-12] MEDS ORDERED: Witch Hazel PAD JAR TOPICAL PRN (08:08)
[2020-06-12] MEDS ORDERED: Lactated Ringers 1000 ml BAG 1,000 ML IV SCH (09:00)
[2020-06-12 12:13] LABS: ABS Eosinophils 0.1 10^3/ul (0-0.6); ABS Lymphocytes 1.8 10^3/ul (1.0-4.8); ABS Monocytes 0.8 10^3/ul (0-0.8); ABS Neutrophils 11.3 10^3/ul (1.5-7.7); Eosinophil % 0.4 %; Hematocrit 30 % (35-47); Hemoglobin 10.3 g/dL (12.0-16.0); Lymphocyte % 12.9 %; Mean Corpuscular HGB Conc 35 g/dL (31-36); Mean Corpuscular Hemoglobin 30 pg (27-31); Mean Corpuscular Volume 86 fL (80-97); Mean Platelet Volume 8.2 fL (7.4-10.4); Platelet Count 177 10^3/uL (150-450); Red Blood Count 3.45 10^6 /uL (3.70-4.87); Red Cell Distribution Width 13 % (10-15)
[2020-06-14] MEDS: OBEPIDURAL 250 ML EPIDURAL SCH (07:42)
[2020-06-14 08:10] VITALS: BP 123/63
[2020-06-14] MEDS ORDERED: Measles, Mumps,Rubella VACC 0.5 ML/VIAL SUBCUT ONE (09:05)
== END 2020-06-14 13:31 | disposition home or self-care (01) | DRG 540 ==
LOC: MCHOBOUT 11:30 → MCHOB 12:39
PROVIDERS: ADMIT Midwife; ATTEND Obstetrics & Gynecology